=== PATIENT | female | born 1975 ===

== ENCOUNTER 2023-04-25 09:31 | Outpatient (AMB) | payer BC, SELFPAY ==
--- NOTE | 2023-04-25 09:38 | A.OFFVIS_ITS ---
Intake Vital Signs 04/25/23 09:40 Height 5 ft 6 in Weight 232 lb BMI 37.4 BP 120/64 Blood Pressure Location Lt brachial Position Sitting Respiration 16 Pulse 73 Intake Visit Reasons: screening colonoscopy Intake Note: Patient 1syt pre colonoscopy screening. Patient denies any GI issues. Hand Ii Cutter Required: No Accompanied by: Self / Same As Patient Allergies No Known Allergies Allergy (Verified 04/25/23 09:37) HPI screening colonoscopy HPI Details 47 year old? female here today for pre c olonoscopy screening.? Patient was sent to us by her PCP.? This is her first colonoscopy screening.? Patient reports to be very constipated. Tried [id number] medications and powders, does not remember what kind. Does not use anything every day. Reports also abdominal cramping. Denies any personal or family history of gastrointestinal disease, colon polyps, or cancer.? Denies history of difficulty with sedation or anesthesia in the past.? Negative for history of sleep apnea.? Denies any history of cardiac, renal, pulmonary, or hepatic disease.?? No history of infectious? diseases like hepatitis A, B, C, HIV or tuberculosis.? Patient is not on any anticoagulation therapy. [facility] Surgical History (Updated 04/25/23 @ 09:45 by Lacie Whitaker) Hx of cholecystectomy Social History (Updated 04/25/23 @ 09:38 by Lacie Whitaker) Household Members: Family Alcohol intake: never Patient Tobacco Use Status: Never used Tobacco Review of Systems Const Denies weight gain and Denies weight loss ENT Reports no additional complaints, Denies dysphagia and Denies odynophagia Card Reports no additional complaints Resp Reports no additional complaints GI Reports abdominal pain (Cramping), Denies belching, Denies melena, Denies bloating, Denies change in bowel habits, Reports constipation, Denies dysphagia, Denies excessive flatus, Denies dyspepsia, Denies heartburn, Denies diarrhea, Denies loose stools, Denies nausea, Denies odynophagia and Denies vomiting Reports no additional complaints Musc Reports no additional complaints Neuro Reports no additional complaints Psych Reports no additional complaints Endo Reports no additional complaints Physical Exam Vital Signs: Last Vital Signs Pulse 73 04/25/23 09:40 Resp 16 04/25/23 09:40 BP 120/64 04/25/23 09:40 BMI result Body Mass Index 37.4 Const General: healthy appearing, no acute distress and well developed Nutritional Appearance: obese Orientation/consciousness: patient oriented x3 HEENT Head: Yes normal to inspection, Yes normocephalic and Yes atraumatic Face and sinus: Yes normal facial exam Mouth: Normal oral and palatal mucosa present Throat: Yes posterior oropharynx normal, Yes tonsils normal and Yes uvula midline Eyes General: appearance normal, both eyes and all related structures Neck Neck: Yes normal visual inspection, Yes full ROM and Yes trachea midline Thyroid: Thyroid normal Resp Effort & Inspection: normal respiratory effort, able to speak in complete sentences, no tracheal deviation and symmetric chest movement Auscultation: clear to auscultation bilaterally Cardio Rate: regular rate Heart sounds: S1 normal heart sound present and S2 normal heart sound present GI Inspection: Yes normal to inspection, No distended and Yes obesity Palpation (GI): Soft to palpation, not firm, nontender and No hepatosplenomegaly present Auscultation: normal bowel sounds General: Yes no CVA tenderness Back/Spine/Pelvis Back: no CVA tenderness Skin General skin exam: elasticity normal, turgor normal and dry skin Neuro General: patient oriented x3 Psych Appearance: grossly normal Mental Status: mental status grossly normal Assessment & Plan Assessment & Plan (1) Screen for colon cancer: Code(s): Z12.11 - Encounter for screening for malignant neoplasm of colon Plan: (2) Abdominal pain: Code(s): R10.9 - Unspecified abdominal pain Qualifiers: Abdominal location: generalized Qualified Code(s): R10.84 - Generalized abdominal pain (3) Chronic idiopathic constipation: Code(s): K59.04 - Chronic idiopathic constipation Plan Patient denies any cardiac or respiratory symptoms.? Denies any issues with anesthesia in the past.? Denies any history of sleep apnea.? No history infe ctious diseases in the past or present.? Not on any anticoagulation therapy.? No family or personal history of colon cancer or polyps.? Patient denies melena, hematochezia, unintentional weight loss or ribbon like stools.? Patient reports to be constipated. Reports to have abdominal cramping when she has no bowel movements for 2-3 days. Patient will start taking Dulcolax tablets every night. She will call us in couple weeks if she will continue to be constipated. I will see her in 6 weeks, sooner on as needed basis. Patient is agreeable to this plan and verbalizes understanding of instructions. She was given the opportunity to ask questions and all questions answered. How to prep and directions as well clear liquid diet discussed with patient. We will go over again next visit. Thank you for allowing me to participate in her care Medications: New polyethylene glycol 3350 (Miralax) As directed by gastroenterology department at [facility] 238 grams PO ONCE 238 grams 0RF Z12.11 - Encounter for screening for malignant neoplasm of colon bisacodyl (Dulcolax (bisacodyl)) take 4 tabs at noon the day before your colonoscopy 20 mg (4 x 5 mg) PO ONCE 1 day 4 tabs 0RF Z12.11 - Encounter for screening for malignant neoplasm of c olon bisacodyl (Dulcolax (bisacodyl)) 10 mg (2 x 5 mg) PO BEDTIME 180 tabs 4RF constipation Coding Level of Care Code New Pt Level 3 (47810) Diagnoses Screen for colon cancer Z12.11 Generalized abdominal pain R10.84 Abdominal location: generalized Chronic idiopathic constipation K59.04 Time Spent (min) 40 Comment 30 minutes spent with patient and additional 10 minutes spent reviewing her records
[2023-04-25 09:40] VITALS: BP 120/64; PULSE 73; RESP 16; BMI 37.4
== END 2023-04-25 10:52 | disposition home or self-care (01) ==
PROVIDERS: PCP Hospitalist; Referring Provider Hospitalist; Visit Provider Nurse Practitioner Family
DX: Z01.818 Encounter for other preprocedural examination (principal); Z12.11 Encounter for screening for malignant neoplasm of colon; R10.84 Generalized abdominal pain; K59.04 Chronic idiopathic constipation
CPT/HCPCS: S0285

== ENCOUNTER → 2023-04-25 09:31 | Outpatient (BNVA) | payer BC, SELFPAY | PROVIDERS: PCP Hospitalist; Referring Provider Hospitalist; Visit Provider Nurse Practitioner Family ==